=== PATIENT | female | born 1990 | race African-American/Black ===

== ENCOUNTER 2022-06-19 04:25 | Emergency (ER) | payer OTHER, SELFPAY ==
--- NOTE | ~2022-06-19 | XR_ITS ---
Clinical Indication: Chest pain PA and lateral views of the chest: Comparison: None Findings: The lungs are clear, without evidence of focal consolidation or pleural effusion. Cardiome diastinal silhouette is within normal limits. Bones and soft tissues are unremarkable. Impression: Normal chest. Reviewed, dictated and finalized at location . [employer] Impression: Normal chest.
--- NOTE | 2022-06-19 04:34 | ECG_ITS ---
Measurements Intervals [place] Rate: 84 P: 41 TX: 143 QRS: 66 QRSD: 84 T: 39 QT: 354 QTc: 419 Interpretive Statements SINUS RHYTHM NORMAL ECG NO PREVIOUS ECG AVAILABLE FOR COMPARISON Electronically Signed On 06-19-2022 6:40:22 [employer] by Vincent Smiley D.O.
[2022-06-19 04:55] LABS: Basophils Percent Auto 0.3 % (0.2-1.2); Eosinophils Absolute Auto 0.1 K/mm3 (0-0.3); Eosinophils Percent Auto 1.4 % (0-4.4); Hematocrit 38.9 % (37.0-47.0); Hemoglobin 12.7 g/dL (12.0-15.0); Immature Granulocyte Absolute 0.02 K/mm3 (0.00-0.031); Immature Granulocyte Percent A 0.3 % (0-0.5); Lymphocytes Absolute Auto 1.29 K/mm3 (0.9-3.2); Lymphocytes Percent Auto 21.8 % (18.3-44.2); Mean Corpuscular HGB Conc 32.6 g/dl (32-36); Mean Corpuscular Hemoglobin 31.5 pg (26-34); Mean Corpuscular Volume 96.5 fl (80-100); Mean Platelet Volume 9.9 fl (7.4-10.4); Monocytes Absolute Auto 0.3 K/mm3 (0.1-0.6); Monocytes Percent Auto 5.7 % (2.6-8.5); Neutrophils Absolute Auto 4.2 K/mm3 (1.3-6.7); Neutrophils Percent Auto 70.5 % (45.5-73.1); Platelet Count Result 282 k/mm3 (150-375); Red Blood Count 4.03 M/mm3 (4.2-5.4); Red Cell Distribution Width 13.2 % (11.5-14.5); White Blood Count 5.9 K/mm3 (4.5-10.0)
[2022-06-19 05:08] LABS: Prothrombin Time 12.7 Seconds (11.1-14.7)
[2022-06-19 05:09] LABS: Partial Thromboplastin Time 27.9 SECONDS (22.3-36.8)
[2022-06-19 05:18] VITALS: BP 127/86; PULSE 89; O2SAT 98
--- NOTE | 2022-06-19 05:20 | PC.NURSE ---
Per MD landon, no labs are needed
--- NOTE | 2022-06-19 05:23 | ED.GENADULT ---
HPI - General Adult General Chief complaint: Upper Respiratory Infection Stated complaint: Cough Time Seen by Provider: 06/19/22 05:05 History of Present Illness HPI narrative: This is a 31-year-old female presenting to ED with 4 days of URI symptoms. Patient's main complaints are a cough that is worse at night. She did develop some chest pain several days after cough that only occurs when she is coughing. She denies fever, chills, nausea, vomiting, diarrhea. Denies shortness of breath. She is eating and drinking well. She denies sick contacts at home. Related Data Allergies Allergy/AdvReac Type Severity Reaction Status Date / Time No Known Allergies Allergy Verified 08/29/19 10:57 [facility] Past Medical History Medical History Healthy adult Social History Social History Social History: Denies use of drugs alcohol tobacco. Exam Narrative: APPEARANCE: No apparent distress. Well-appearing Head: tympanic membranes are normal, no erythema of the erythema of the oropharynx EYES: EOMI, NOSE: Atraumatic NECK: Trachea midline RESPIRATORY: No increased rate of breathing, clear to auscultation bilaterally CARDIOVASCULAR: RRR, no peripheral edema ABDOMINAL: Non-distended MUSCULOSKELETAl: No obvious deformities NEURO: Alert. Moving 4/4 extremities SKIN:: Warm, dry. Normal color PSYCHIATRIC: Normal affect Course Vital Signs Vital signs: Vital Signs Oxygen Delivery Room Air 06/19/22 04:31 Pulse Rate 89 06/19/22 05:18 Blood Pressure 127/86 06/19/22 05:18 Pulse Oximetry 98 06/19/22 05:18 Oxygen Delivery Room Air 06/19/22 04:31 Medical Decision Making [facility] Narrative Medical decision making narrative: -Presentation: well-appearing 31-year-old female presenting to ED with URI symptoms x4 days. Her main complaint is a annoying cough. -DDX includes but is not limited to: URI, flu, COVID, strep throat -Co-morbidities complicating care: none -Social determinants of health: patient is having trouble sleeping at night due to cough and is affecting her work. -External Chart Review: None -Hx from independent Sources: none -Discussion of Management/Consultants: none -Independent interpretation of studies: workup was ordered per nursing protocol. chest x-ray showed no acute cardiopulmonary process. Independent EKG interpretation: Rhythm [sinus], Rate [84], [place] -[normal], RI -[normal], QRS [narrow], QTC [normal], T waves -[negative for concerning inversions], ST Segments - [Negative for concerning elevations] Final interpretations: [Normal Sinus Rhythm] lab work was within normal limits. Dx tests considered but not ordered: None -Procedures: None -Interventions: Robitussin cough syrup, topical lozenge -Shared decision making / Disposition: patient be discharged with prescriptions for cough medicine. She has been given return precautions if her condition worsens. -RX cepachol lozenges, Robitussin DM Vital Signs Vital Signs: Vital Signs Oxygen Delivery Room Air 06/19/22 04:31 Pulse Rate 89 06/19/22 05:18 Blood Pressure 127/86 06/19/22 05:18 Pulse Oximetry 98 06/19/22 05:18 Oxygen Delivery Room Air 06/19/22 04:31 Lab Data 06/19/22 04:45 06/19/22 04:45 Labs: Lab Results 06/19/22 06/19/22 06/19/22 Range/Units 04:45 04:45 04:45 WBC 5.9 (4.5-10.0) K/mm3 RBC 4.03 L (4.2-5.4) M/mm3 Hgb 12.7 (12.0-15.0) g/dL Hct 38.9 (37.0-47.0) % MCV 96.5 (80-100) fl MCH 31.5 (26-34) pg MCHC 32.6 (32-36) g/dl RDW 13.2 (11.5-14.5) % Plt Count 282 (150-375) k/mm3 MPV 9.9 (7.4-10.4) fl Immature Gran % (Auto) 0.3 (0-0.5) % Neut % (Auto) 70.5 (45.5-73.1) % Lymph % (Auto) 21.8 (18.3-44.2) % [place] % (Auto) 5.7 (2.6-8.5) % Eos % (Auto) 1.4 (0-4.
[2022-06-19 05:29] LABS: Influenza A QL RT-PCR Negative (Negative); Influenza B QL RT-PCR Negative (Negative); SARS-CoV-2 RNA PCR Negative
[2022-06-19] MEDS: guaiFENesin/DEXTROMETHORPHAN 10 ML UDC PO (05:42)
== END 2022-06-19 05:47 | disposition home or self-care (01) ==
PROVIDERS: Emergency Provider Emergency Medicine; PCP Emergency Medicine
DX: J06.9 Acute upper respiratory infection, unspecified (principal)
CPT/HCPCS: 36415; 71046; 85025; 85610; 85730; 87636; 93005; 99284; A9270